=== PATIENT | female | born 1990 | race African-American/Black ===

== ENCOUNTER 2023-01-28 08:56 | Observation (INO) | payer MEDICAID ==
[~2023-01-28] VITALS: Ht 157.5 cm; Wt 128.4 kg
[2023-01-28] MEDS ORDERED: RHO(D) IMMUNE GLOBULIN 300 MCG/SYR IM NR (10:15)
== END 2023-01-28 11:05 | disposition home or self-care (01) ==
LOC: 8EST 08:56 → 8 EST A/PP 09:53
PROVIDERS: ADMIT Specialist; ATTEND Specialist
DX: O36.0930 Maternal care for other rhesus isoimmunization, third trimester, not applicable or unspecified (principal); Z3A.29 29 weeks gestation of pregnancy; Z23 Encounter for immunization; Z71.85 Encounter for immunization safety counseling
CPT/HCPCS: 36415; 86850; 86900; 90384; 96372; G0378; J2791